=== PATIENT | female | born 1985 | race American Indian/Alaskan Native ===

== ENCOUNTER 2020-07-18 11:19 | Emergency (ER) | payer SELFPAY ==
--- NOTE | 2020-07-18 11:40 | Emergency Department Report ---
ED General Adult HPI - General Chief complaint: Chest Pain Stated complaint: CHEST PAIN Time Seen by Provider: 07/18/20 11:34 Source: patient Mode of arrival: Ambulatory Limitations: No Limitations - History of Present Illness Initial comments: Patient is a 34-year-old female presents emergency room complaints of substernal chest pain that began 3 days ago. She describes it as a burning sensation that radiates up into her throat. She states that she feels like she has increased gas and has been having increasing burping. She states that occasionally she has vomiting. She denies any fever, diarrhea, radiation of the pain, shortness of breath, leg swelling. She states that she has been taking Tums without much relief. She has a past medical history of hypertension. No medication allergies. She is a tobacco smoker. Severity scale (0 -10): 10 - Related Data Previous Rx's Medication Instructions Recorded Last Taken Type Famotidine [Pepcid] 40 mg PO QHS #30 tablet 07/18/20 Unknown Rx Sucralfate [Carafate] 1 gm PO ACHS 7 Days #21 tablet 07/18/20 Unknown Rx ED Review of Systems ROS: Stated complaint: CHEST PAIN Other details as noted in HPI Comment: All other systems reviewed and negative ED Past Medical Hx - Past Medical History Hx Hypertension: Yes - Surgical History Past Surgical History?: Yes Additional Surgical History: appy, left ankle - Medications Home Medications: Home Medications Medication Instructions Recorded Confirmed Last Taken Type Famotidine [Pepcid] 40 mg PO QHS #30 tablet 07/18/20 Unknown Rx Sucralfate [Carafate] 1 gm PO ACHS 7 Days #21 tablet 07/18/20 Unknown Rx ED Physical Exam - General Limitations: No Limitations General appearance: alert, in no apparent distress - Head Head exam: Present: atraumatic, normocephalic - Eye Eye exam: Present: normal appearance - ENT ENT exam: Present: mucous membranes moist - Respiratory Respiratory exam: Present: normal lung sounds bilaterally. Absent: respiratory distress, wheezes, rales, rhonchi, stridor, chest wall tenderness, accessory muscle use, decreased breath sounds, prolonged expiratory - Cardiovascular Cardiovascular Exam: Present: regular rate, normal rhythm, normal heart sounds. Absent: systolic murmur, diastolic murmur, gallop - Neurological Exam Neurological exam: Present: alert, oriented X3 - Psychiatric Psychiatric exam: Present: normal affect, normal mood - Skin Skin exam: Present: warm, dry, intact ED Course Vital Signs 07/18/20 07/18/20 11:32 13:51 Temperature 98.3 F Pulse Rate 75 58 L Respiratory 17 Rate Blood Pressure 146/94 [Left] O2 Sat by Pulse 100 100 Oximetry ED Medical Decision Making - Lab Data Result diagrams: 07/18/20 11:57 07/18/20 11:57 Lab Results 07/18/20 07/18/20 07/18/20 Range/Units 11:57 11:57 11:57 WBC 6.5 (4.5-11.0) K/mm3 RBC 4.70 (3.65-5.03) M/mm3 Hgb 14.5 H (10.1-14.3) gm/dl Hct 42.1 (30.3-42.9) % MCV 90 (79-97) fl MCH 31 (28-32) pg MCHC 35 H (30-34) % RDW 13.8 (13.2-15.2) % Plt Count 274 (140-440) K/mm3 Lymph % (Auto) 30.2 (13.4-35.0) % [place] % (Auto) 13.5 H (0.0-7.3) % Eos % (Auto) 0.8 (0.0-4.3) % Baso % (Auto) 0.8 (0.0-1.8) % Lymph # (Auto) 2.0 (1.2-5.4) K/mm3 [place] # (Auto) 0.9 H (0.0-0.8) K/mm3 Eos # (Auto) 0.1 (0.0-0.4) K/mm3 Baso # (Auto) 0.1 (0.0-0.1) K/mm3 Seg Neutrophils % 54.7 (40.0-70.0) % Seg Neutrophils # 3.6 (1.8-7.7) K/mm3 Sodium 137 (137-145) mmol/L Potassium 4.1 (3.6-5.0) mmol/L Chloride 104.8 (98-107) mmol/L Carbon Dioxide 26 (22-30) mmol/L Anion Gap 10 mmol/L BUN 8 (7-17) mg/dL Creatinine 0.8 (0.6-1.2) mg/dL Estimated GFR > 60 ml/min BUN/Creatinine Ratio 10 % Glucose 86 (65-100) mg/dL Calcium 9.9 (8.4-10.2) mg/dL Total Bilirubin 0.20 (0.1-1.2) mg/dL AST 16 (5-40) units/L ALT 15 (7-56) units/L Alkaline Phosphatase 65 (35-129) units/L Troponin T < 0.010 (0.00-0.029) ng/mL Total Protein 6.8 (6.3-8.2) g/dL Albumin 3.9 (3.9-5) g/dL Albumin/Globulin Ratio 1.3 % HCG, Qual Negative (Negative) Vital Signs 07/18/20 07/18/20 11:32 13:51 Temperature 98.3 F Pulse Rate 75 58 L Respiratory 17 Rate Blood Pressure 146/94 [Left] O2 Sat by Pulse 100 100 Oximetry - EKG Data EKG shows normal: sinus rhythm, axis, intervals, ST-T waves Rate: normal - EKG Data 07/18/20 13:19 inverted P waves in V1, V2 LAE no STEMI - Radiology Data Radiology results: report reviewed Ordering Physician: COURTNEY MELARA Date of Service: 07/18/20 Procedure(s): XR chest routine 2V Accession Number(s): [id number] cc: COURTNEY MELARA Fluoro Time In Minutes: CHEST 2 VIEWS INDICATION / CLINICAL INFORMATION: Chest pain. COMPARISON: None available. FINDINGS: SUPPORT DEVICES: None. HEART / MEDIASTINUM: No significant abnormality. LUNGS / PLEURA: Clear lungs. No significant pleural effusion. No pneumothorax. ADDITIONAL FINDINGS: No significant additional findings. IMPRESSION: 1. No acute abnormality of the chest. Signer Name: Kristopher Woodson MD Signed: 07/18/2020 1:26 PM Workstation Name: [id number] Transcribed By: [place] Dictated By: Kristopher Woodson MD Electronically Authenticated By: Kristopher Woodson MD Signed Date/Time: 07/18/201325 DD/ 25 TD/TT: Print - Medical Decision Making Patient is a 34-year-old female presents emergency room complaints of substernal chest pain that began 3 days ago. She describes it as a burning sensation that radiates up into her throat. She states that she feels like she has increased gas and has been having increasing burping. She states that occasionally she has vomiting. She denies any fever, diarrhea, radiation of the pain, shortness of breath, leg swelling. She states that she has been taking Tums without much relief. She has a past medical history of hypertension. No medication allergies. She is a tobacco smoker. Vitals are stable. No abnormality on physical examination as documented in chart. Patients chest pain is atypical, appears more consistent with GERD, patient does have cardiac risk factors such as hypertension and tobacco use, her heart score is a 1, low risk for cardiac event. Labs are normal. Troponin is negative. EKG with inverted P waves in V1, V2 LAE, no STEMI. Chest x-ray 1. No acute abnormality of the chest. Discussed all results with patient and answered questions. Patient will be referred to primary care doctor and GI doctor. Patient given prescription for Carafate and Pepcid. Advised patient Please take medication as prescribed. Increase your water intake. Please follow the diet for acid reflux. Follow-up with your primary care doctor. Follow-up with a GI doctor. Return to emergency room for any worsening symptoms. Critical care attestation.: If time is entered above; I have spent that time in minutes in the direct care of this critically ill patient, excluding procedure time. ED Disposition Clinical Impression: Atypical chest pain GERD (gastroesophageal reflux disease) Qualifiers: Esophagitis presence: without esophagitis Qualified Code(s): K21.9 - Gastro- esophageal reflux disease without esophagitis Disposition: TO HOME OR SELFCARE Is pt being admited?: No Does the pt Need Aspirin: No Condition: Stable Instructions: Gastroesophageal Reflux Disease, Adult, [id number] Additional Instructions: Please take medication as prescribed. Increase your water intake. Please follow the diet for acid reflux. Follow-up with your primary care doctor. Foll ow-up with a GI doctor. Return to emergency room for any worsening symptoms. Prescriptions: Famotidine [Pepcid] 40 mg PO QHS #30 tablet Sucralfate [Carafate] 1 gm PO ACHS 7 Days #21 tablet Referrals: PRIMARY CARE, [Primary Care Provider] - 2-3 Days [facility] [Provider Group] - 2-3 Days Time of Disposition: 13:46 HEART Score - HEART Score History: Slightly suspicious EKG: Normal Age: < 45 Risk factors: 1-2 risk factors Troponin: Troponin T < 0.010 ng/mL (0.00-0.029) 07/18/20 11:57 Troponin: < normal limit HEART Score: 1
[2020-07-18 12:26] LABS: Basophils # (Auto) 0.1 K/mm3 (0.0-0.1); Basophils % (Auto) 0.8 % (0.0-1.8); Eosinophils # (Auto) 0.1 K/mm3 (0.0-0.4); Eosinophils % (Auto) 0.8 % (0.0-4.3); Hematocrit 42.1 % (30.3-42.9); Hemoglobin 14.5 gm/dl (10.1-14.3); Lymphocytes % (Auto) 30.2 % (13.4-35.0); Mean Corpuscular HGB Conc 35 % (30-34); Mean Corpuscular Volume 90 fl (79-97); Monocytes # (Auto) 0.9 K/mm3 (0.0-0.8); Monocytes % (Auto) 13.5 % (0.0-7.3); Platelet Count 274 K/mm3 (140-440); Red Cell Distribution Width 13.8 % (13.2-15.2)
[2020-07-18 12:37] LABS: Alanine Aminotransferase 15 units/L (7-56); Albumin 3.9 g/dL (3.9-5); BUN/Creatinine Ratio 10; Blood Urea Nitrogen 8 mg/dL (7-17); Calcium 9.9 mg/dL (8.4-10.2); Hemolysis Index 6
--- NOTE | 2020-07-18 13:31 | XRay Report ---
CHEST 2 VIEWS INDICATION / CLINICAL INFORMATION: Chest pain. COMPARISON: None available. FINDINGS: SUPPORT DEVICES: None. HEART / MEDIASTINUM: No significant abnormality. LUNGS / PLEURA: Clear lungs. No significant pleural effusion. No pneumothorax. ADDITIONAL FINDINGS: No significant additional findings. IMPRESSION: 1. No acute abnormality of the chest. Signer Name: Kristopher Woodson MD Signed: 07/18/2020 1:26 PM Workstation Name: [id number]
[2020-07-18 13:52] VITALS: BP 146/94
--- NOTE | 2020-07-19 12:06 | Electrocardiograph Report ---
[facility] Test Date: 2020-07-18 Test Time: 11:51:43 Pat Name: MORENA GORDON Department: Room: Gender: F Training Program Assistant: NALLELY : 1985 Requested By: ASHA ROSA Order Number: [id number] Reading MD: Farhat Goodwin Measurements Intervals [place] Rate: 68 P: 85 SD: 156 QRS: 46 QRSD: 78 T: 53 QT: 394 QTc: 420 Interpretive Statements Sinus rhythm Left atrial enlargement nonspeci No previous ECG available for comparison Electronically Signed On 07-19-2020 12:06:00 EDT by Farhat Goodwin
== END 2020-07-18 13:15 | disposition home or self-care (01) ==
LOC: ED 11:19
DX: K21.9 Gastro-esophageal reflux disease without esophagitis (principal); R07.89 Other chest pain; I10 Essential (primary) hypertension; Z79.899 Other long term (current) drug therapy; Z98.890 Other specified postprocedural states
CPT/HCPCS: 36415; 71046; 80053; 84484; 84703; 85025; 93005